=== PATIENT | male | born 1940 | race Two or more races ===

== ENCOUNTER 2020-10-21 06:15 | Day surgery (SDC) | payer OTHER | END 2020-10-21 10:00 | disposition home or self-care (01) | LOC: AMB-ENDOS 06:15 | PROVIDERS: ATTEND Colon & Rectal Surgery | DX: D12.4 Benign neoplasm of descending colon (principal); K64.2 Third degree hemorrhoids; Z20.822 Contact with and (suspected) exposure to COVID-19 ==

== ENCOUNTER 2023-01-22 05:45 | Day surgery (SDC) | payer OTHER | END 2023-01-22 10:25 | disposition home or self-care (01) | LOC: AMB-ENDOS 05:45 | PROVIDERS: ATTEND Colon & Rectal Surgery | DX: D12.4 Benign neoplasm of descending colon (principal); K57.30 Diverticulosis of large intestine without perforation or abscess without bleeding; Z86.010 Personal history of colon polyps; K64.8 Other hemorrhoids ==

== ENCOUNTER 2023-03-25 10:15 | Inpatient (IN) | payer OTHER ==
[~2023-03-25] VITALS: Ht 165.1 cm; Wt 63.5 kg
[2023-03-25] MEDS ORDERED: METFORMIN HCL500 M3 PO (12:13)
[2023-03-25] MEDS ORDERED: OMEGA-31000 MG PO (12:13)
[2023-03-25] MEDS ORDERED: ZESTRIL20 MG PO (12:13)
[2023-03-25] MEDS ORDERED: CHILDREN'S ASPI81 MG PO (12:13)
[2023-03-25] MEDS ORDERED: HORIZANT300 MG PO (12:14)
[2023-03-25] MEDS ORDERED: GLIPIZIDE XL2.5 MG PO (12:14)
[2023-03-25] MEDS ORDERED: ZOCOR20 MG PO (12:14)
[2023-04-02 13:08] LABS: HEMATOCRIT 42.8 % (39.0-48.0); HEMOGLOBIN 14.1 g/dL (13-16.00); MEAN CELL VOLUME 95.9 fL (80.0-100.00); MEAN CORPUSCULAR HEMOGLOBIN 31.5 pg (27.00-32.0); MEAN CORPUSCULAR HGB CONC 32.9 g/dl (32.0-36.0); PLATELET COUNT 195 K/uL (150-450); RED BLOOD COUNT 4.46 M/uL (4.00-6.00)
[2023-04-03 06:05] LABS: HEMATOCRIT 37.5 % (39.0-48.0); HEMOGLOBIN 12.7 g/dL (13-16.00); MEAN CELL VOLUME 94.3 fL (80.0-100.00); MEAN CORPUSCULAR HEMOGLOBIN 31.9 pg (27.00-32.0); MEAN CORPUSCULAR HGB CONC 33.8 g/dl (32.0-36.0); PLATELET COUNT 156 K/uL (150-450); RED BLOOD COUNT 3.98 M/uL (4.00-6.00)
[2023-04-03 06:45] LABS: ALBUMIN 2.9 gm/dL (3.4-5.0); CREATININE SERUM 1.74 mg/dL (0.70-1.30); GFR 37.57; MAGNESIUM 1.8 mg/dL (1.8-2.4); PHOSPHOROUS 3.1 mg/dL (2.5-4.9); POTASSIUM 4.67 mEq/L (3.5-5.1)
== END 2023-04-05 10:14 | disposition home or self-care (01) | DRG 331 ==
LOC: SURH 04-02 05:30 → O/R 04-02 05:30 → SURH 04-02 10:15
PROVIDERS: ADMIT Colon & Rectal Surgery; ATTEND Colon & Rectal Surgery
PROC: 0DBP0ZZ Excision of Rectum, Open Approach (ICD-10-PCS; 2023-04-02)
PROC: 07BC0ZX Excision of Pelvis Lymphatic, Open Approach, Diagnostic (ICD-10-PCS; 2023-04-02)
PROC: 0DQ80ZZ Repair Small Intestine, Open Approach (ICD-10-PCS; 2023-04-02)
PROC: 0DTN0ZZ Resection of Sigmoid Colon, Open Approach (ICD-10-PCS; principal; 2023-04-02 20:15)
DX: C18.2 Malignant neoplasm of ascending colon (principal); K66.0 Peritoneal adhesions (postprocedural) (postinfection)